=== PATIENT | female | born 1975 | race African-American/Black ===

== ENCOUNTER 2021-06-17 19:55 | Emergency (ER) | payer BC ==
[~2021-06-17] VITALS: Ht 165.1 cm; Wt 86.2 kg
[2021-06-17] MEDS ORDERED: SODIUM CHLORIDE 0.9% 1000ML 1,000 ML IV STA (20:00)
[2021-06-17 20:51] LABS: BASOPHILS % 0.3 % (0.0-1.0); EOSINOPHILS # (AUTO) 0.1 (0.0-0.4); EOSINOPHILS % 0.9 % (0.0-6.0); HEMATOCRIT 35.6 % (34.2-44.1); HEMOGLOBIN 11.2 g/dL (12.0-16.0); LYMPHOCYTES # (AUTO) 4.6 (1.0-3.2); LYMPHOCYTES % 39.3 % (18.0-39.1); MEAN CORPUSCULAR HEMOGLOBIN 26.2 pg (28-32); MEAN CORPUSCULAR HGB CONC 31.5 g/dL (31-35); MEAN CORPUSCULAR VOLUME 83.2 fL (81-99); MONOCYTES # (AUTO) 0.9 (0.2-0.8); NEUTROPHILS # (AUTO) 5.9 (2.1-6.9); NEUTROPHILS % 51.2 % (38.7-80.0); PLATELET COUNT 384 x10e3/uL (140-360); RED BLOOD COUNT 4.28 x10e6/uL (3.6-5.1); RED CELL DISTRIBUTION WIDTH 15.9 % (11.7-14.4)
[2021-06-17 21:07] LABS: ALANINE AMINOTRANSFERASE 13 IU/L (0-55); ALKALINE PHOSPHATASE 48 IU/L (40-150); ANION GAP 15.4 mmol/L (8-16); BLOOD UREA NITROGEN 11 mg/dL (7-26); BUN/CREATININE RATIO 11 (6-25); CALCIUM 9.1 mg/dL (8.4-10.2); CARBON DIOXIDE 25 mmol/L (22-29); CHLORIDE 102 mmol/L (98-107); CREATINE KINASE 112 IU/L (29-168); CREATININE, SERUM 0.97 mg/dL (0.57-1.11); EST GLOMERULAR FILTRATION RATE 75 ML/MIN (60-); GLUCOSE 102 mg/dL (74-118); POTASSIUM 3.4 mmol/L (3.5-5.1); SODIUM 139 mmol/L (136-145)
[2021-06-17 22:16] LABS: EOSINOPHILS % (MANUAL) 1 % (0-7); LYMPHOCYTES % (MANUAL) 31 % (19-48); MONOCYTES % (MANUAL) 10 % (3.4-9.0); NEUTROPHILS % (MANUAL) 53 % (40-74)
[2021-06-17] MEDS ORDERED: PEPCID20 MG PO (22:16)
[2021-06-17 22:17] LABS: PLATELET ESTIMATE SLIGHTLY INCREASED; PLATELET MORPHOLOGY COMMENT NORMAL; RBC MORPHOLOGY COMMENT NORMAL
[2021-06-17] MEDS ORDERED: SODIUM CHLORIDE 0.9% 50ML 50 ML ONE (22:21)
[2021-06-17] MEDS ORDERED: IOPAMIDOL 370 MG/ML 200 ML INFUS..BTL INJ ONE (22:21)
[2021-06-17 23:04] VITALS: BP 129/68
== END 2021-06-17 22:40 | disposition home or self-care (01) ==
LOC: ER 20:56
DX: R07.89 Other chest pain (principal); R06.00 Dyspnea, unspecified; R94.31 Abnormal electrocardiogram [ECG] [EKG]
CPT/HCPCS: 36415; 71260; 80053; 81025; 82550; 82553; 83880; 84484; 85025; 86850; 86900; 93005; 99284; J7030; Q9967

== ENCOUNTER 2021-10-22 03:05 | Emergency (ER) | payer BC ==
[~2021-10-22] VITALS: Ht 167.6 cm; Wt 86.6 kg
[~2021-10-22 03:05] MED LIST: PEPCID20 MG PO
[2021-10-22] MEDS ORDERED: LORAZEPAM 0.5 MG TAB PO ONE (04:00)
[2021-10-22] MEDS ORDERED: LORAZEPAM 0.5 MG TAB ONE (04:09)
[2021-10-22] MEDS ORDERED: ATIVAN1 MG PO (04:40)
[2021-10-22 05:10] VITALS: BP 150/78
== END 2021-10-22 05:10 | disposition home or self-care (01) ==
LOC: FSED 03:14
DX: R00.0 Tachycardia, unspecified (principal); F41.9 Anxiety disorder, unspecified; R94.31 Abnormal electrocardiogram [ECG] [EKG]
CPT/HCPCS: 80053; 80307; 81025; 85025; 93005; 99283